=== PATIENT | female | born 1995 | race Caucasian/White ===

== ENCOUNTER 2018-04-14 10:22 | Emergency (ER) | payer OTHER ==
[~2018-04-14] VITALS: Ht 167.6 cm; Wt 102.0 kg
[2018-04-14 10:32] VITALS: Ht 167.6 cm; Wt 102.0 kg
[2018-04-14 12:36] VITALS: BP 140/87
== END 2018-04-14 12:36 | disposition home or self-care (01) ==
LOC: ED 10:22
DX: B34.9 Viral infection, unspecified (principal); J45.909 Unspecified asthma, uncomplicated
CPT/HCPCS: 87491; 87591

== ENCOUNTER 2018-04-17 12:07 | Emergency (ER) | payer OTHER ==
[~2018-04-17] VITALS: Ht 167.6 cm; Wt 102.5 kg
[2018-04-17 12:15] VITALS: Ht 167.6 cm; Wt 102.5 kg
[2018-04-17 12:51] VITALS: BP 122/75
== END 2018-04-17 12:51 | disposition home or self-care (01) ==
LOC: ED 12:07
DX: B34.9 Viral infection, unspecified (principal); J45.909 Unspecified asthma, uncomplicated